=== PATIENT | male | born 1945 | race Caucasian/White ===

== ENCOUNTER → 2017-06-10 | Outpatient (CLI) | payer OTHER ==
[~2017-06-10] MED LIST: ASPI-757 PO; BICA50TA36 PO; CALC-515 PO; CALC-597 PO; FAMO20TA28 PO; HYDR474S3 PO; IBUP800T37 PO; LEVO-85 PO; LISI20TA29 PO; METO25TA23 PO; METO25TA93 PO; SPIR25TA78 PO; ZINC50TA2 PO
--- NOTE | 2017-06-10 15:07 | RADIOLOGY IMAGING REPORT ---
FACILITY: [facility] PATIENT NAME: Mason Shaver : 1945 MR: [id number] V: [id number] EXAM DATE: ORDERING PHYSICIAN: DILIP BECERRA TECHNOLOGIST: [place] [facility] [place] Sh[place] : 1945 Visit/Account:[id number] Date of Sevice: 06/10/2017 EXAMINATION: Nuclear Medicine Whole Body Bone Scan Additional Pertinent history: Prostate cancer. TECHNIQUE: 26.3 mCi technetium 99m MDP was injected intravenously. Delayed anterior and posterior wh ole body gamma camera images were obtained. Additional gamma camera images: none COMPARISON STUDIES: 02/28/2016 FINDINGS: There is no scintigraphic evidence of osseous metastatic disease. Extensive degenerative uptake is s een with a similar distribution to the prior study. Extensive uptake involves the cervical spine loc alized to the posterior elements, likely related to the facet joints. There is right greater than le ft degenerative uptake at the acromioclavicular joints and the glenohumeral joints. Uptake is seen a t the bilateral thumbs, likely at the first carpal metacarpal joints. Extensive degenerative uptake at the knees greater on the right than on the left. There is degenerative uptake at the left midfoot and at the left first metatarsophalangeal joint. IMPRESSION: 1. No scintigraphic evidence of osseous metastatic disease. 2. Multifocal degenerative uptake with a similar distribution to the previous study. Report Dictated By: Ambrosio Blair at 06/10/2017 2:57 PM Report E-Signed By: Ambrosio Blair at 06/10/2017 3:01 PM WSN:[email or web address]
== END ==
LOC: NUC 00:43
PROVIDERS: ATTEND Internal Medicine
DX: R97.21 Rising PSA following treatment for malignant neoplasm of prostate (principal)
CPT/HCPCS: 78306; A9503

== ENCOUNTER → 2017-07-03 | Outpatient (CLI) | payer OTHER ==
[2017-07-03 13:47] LABS: PLATELET COUNT, AUTOMATED 130 K/uL (150-450)
== END ==
LOC: LAB 13:32
PROVIDERS: ATTEND Urology
DX: C61 Malignant neoplasm of prostate (principal)
CPT/HCPCS: 36415; 82040; 82247; 82310; 82374; 82435; 82565; 82947; 84075; 84132; 84153; 84155; 84295; 84403; 84450; 84460; 84520; 85025

== ENCOUNTER 2017-10-08 10:49 | Outpatient (RCR) | payer OTHER ==
[~2017-10-08 10:49] MED LIST changes: -BICA50TA36 PO; +BICA50TA41 PO; -SPIR25TA78 PO; +SPIR25TA80 PO
== END 2017-10-09 13:44 | disposition home or self-care (01) ==
LOC: RAON 10:49
PROVIDERS: ATTEND Radiology Radiation Oncology
DX: C61 Malignant neoplasm of prostate (principal)
CPT/HCPCS: 99212

== ENCOUNTER 2017-12-25 11:48 | Emergency (ER) | payer OTHER ==
[~2017-12-25 11:48] MED LIST changes: +DOXY-228 PO; +TAMS0.4C25 PO
--- NOTE | 2017-12-25 11:55 | ER Report ---
History and Physical Time Seen By MD: 11:55 HPI/ROS CHIEF COMPLAINT: Systemic joint pain HISTORY OF PRESENT ILLNESS: This is a 72-year-old male presents to the emergency department for systemic joint pain. Patient was seen and evaluated in the emergency department approximately one month ago given doxycycline for Meredith spotted fever. Patient states he did improve during the course of antibiotics and for roughly a week after that began to develop systemic joint pain given. States now that he has take 2 ibuprofen in the morning just to get up and start moving, significant amount of pain in the hips and shoulders, as well as the hands and knees. No history of rheumatoid arthritis. Patient does have a history of prostate cancer as well as colon cancer. He denies fevers or chills. No rashes. No headaches. REVIEW OF SYSTEMS: Respiratory: No cough, no dyspnea. Cardiovascular: No chest pain, no palpitations. Gastrointestinal: No vomiting, no abdominal pain. Musculoskeletal: As above. Allergies: Coded Allergies: Sulfa (Sulfonamide Antibiotics) (Verified Allergy, Severe, swelling to hands and face, 12/25/17) Home Meds Active Scripts Prednisone (PREDNISONE) 20 Mg Tablet, 40 MG PO QDAY, #17 TAB 40mg once a day for 4 days. 30mg once a day for 3 days. 20mg once a day for 3 days. 10mg once a day for 2 days. Prov:DIONISIO DE LA TORRE [employer]/DESIGNER-BC 12/25/17 Reported Medications Tamsulosin Hcl (FLOMAX) 0.4 Mg Cap.er.24h, 0.4 MG PO QDAY, CAP 12/01/17 Lisinopril (LISINOPRIL) 20 Mg Tablet, 20 MG PO QDAY, TAB 12/01/17 Calcium Carbonate (TUMS) 200 Mg Tab.chew, 200 MG PO PRN, TAB.CHEW 04/25/16 Zinc Amino Acid Chelate (ZINC) 50 Mg Tablet, 50 MG PO PRN 04/25/16 Spironolactone (SPIRONOLACTONE) 25 Mg Tablet, 12.5 MG PO DAILY, TAB 04/25/16 Metoprolol Tartrate (METOPROLOL TARTRATE) 25 Mg Tablet, 1 TAB PO BID, TAB 04/25/16 Ibuprofen (IBUPROFEN) 800 Mg Tablet, 1 TAB PO Q8H PRN for PAIN, #50 TAB 02/02/16 Discontinued Reported Medications Aspirin (ASPIRIN) 325 Mg Tablet, 325 MG PO PRN PRN for PAIN/HEADACHE, TAB 04/25/16 Calcium Carbonate/Vitamin D3 (CALCIUM 600 + VIT D TABLET) 1 Each Tablet, 1 EACH PO QODAY 04/25/16 Discontinued Scripts Doxycycline Hyclate (DOXYCYCLINE HYCLATE) 100 Mg Tablet.dr, 100 MG PO BID for 10 Days, #20 TAB 0 Refills Prov:DIONISIO DE LA TORRE [employer]/DESIGNER-BC 12/01/17 Past Medical/Surgical History The patient has a past medical and surgical history of hypertension, asthma, pneumonia, colon cancer, GERD, prostate cancer, 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 Reviewed Nurses Notes: Yes Hx Smoking: Yes (SMOKED 15 YEARS, 1/2 PPD) Smoking Status: Former Smoker Exposure to Second Hand Smoke?: No Hx Substance Use Disorder: No Hx Alcohol Use: Yes Constitutional Vital Sign - Last 24 Hours 12/25/17 11:58 Temp 98.1 Pulse 97 Resp 16 B/P (MAP) 147/95 Pulse Ox 95 O2 Delivery Room Air Physical Exam General Appearance: The patient is alert, has no immediate need for airway protection and no current signs of toxicity. Eyes: Pupils equal and round no injection. Respiratory: Chest is non tender, lungs are clear to auscultation. Cardiac: regular rate and rhythm. Gastrointestinal: Abdomen is soft and non tender, no masses, bowel sounds normal. Musculoskeletal: Neck: Neck is supple and non tender. Extremities have full range of motion and are non tender. Skin: No rashes or lesions. DIFFERENTIAL DIAGNOSIS: After history and physical exam differential diagnosis was considered for rheumatoid arthritis, Lyme disease, Ector mountain spotted fever and metastatic cancer. Medical Decision Making Data Points Laboratory Hematology Test 12/25/17 12:58 Erythrocyte Sedimentation Rate 34 mm/HOUR (0-20) C-Reactive Protein 6.1 mg/dl (<1.0) Chemistry Test 12/25/17 12:58 Erythrocyte Sedimentation Rate 34 mm/HOUR (0-20) C-Reactive Protein 6.1 mg/dl (<1.0) EKG/Imaging Imaging INDICATION: Bilateral hip pain after insect bite COMPARISON: None available FINDINGS: No evidence of fracture, dislocation, or acute osseous abnormality of the bones of the pelvis. 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 Prostatic seeds are noted. Moderate to severe degenerative changes seen within the visualized lumbar spine. IMPRESSION: 1. No acute osseous abnormality of the pelvis 2. 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 COMPARISON: Chest radiograph 04/27/2016. FINDINGS: Right shoulder: The bones of the right shoulder demonstrate normal alignment, without evidence of fracture or dislocation. There are moderately advanced degenerative changes at the glenohumeral and acromioclavicular joints. Pr ominent osteophyte formation at the acromioclavicular joint, with inferior spurring. The subacromial space is preserved. Generalized osteopenia. Visualized upper right ribs appear intact. Left shoulder: Bones of the left shoulder demonstrate normal alignment, without evidence of fracture or dislocation. There are moderately advanced degenerative changes at the glenohumeral and acromioclavicular joints. Moderate osteophyte formation at the acromioclavicular joint, with mild inferior spurring. The canales bacromial space is preserved. Visualized upper left ribs appear intact. IMPRESSION: 1. No acute osseous findings involving either shoulder. Normal alignment. 2. Moderately advanced degenerative changes of both glenohumeral and acromioclavicular joints. Report Dictated By: Demarco Pinon MD at 12/25/2017 2:26 PM Report E-Signed By: Demarco Pinon MD at 12/25/2017 2:29 PM WSN:[facility] ED Course/Re-evaluation ED Course Patient was admitted to room. History was were obtained. Differential diagnoses were considered. The patient has had recurrent joint pain, which is more painful than one month ago when he was seen for a tick bite. He did state that pain improved after the doxycycline, but the systemic joint pain began to return, only more intense. I am concerned that he does have some other inflammatory condition developing, such as RA. I did sent blood looking for rheumatoid factor as well as Lyme. ESR today is 34, CRP 6.1. A hip and bilateral shoulder X-ray is showing arthritis. I did review the labs and radiology results with the patient. I did express my concern about RA. I did place him on a 10 day tapered coarse of prednisone. [facility] He was instructed to return to the ED for any other concerns. Patient expressed understanding and was discharged home. Decision to Disposition Date: Dec 25, 2017 Decision to Disposition Time: 14:40 Depart Departure Latest Vital Signs Vital Signs Date Time Temp Pulse Resp B/P (MAP) Pulse Ox O2 Delivery O2 Flow Rate FiO2 12/25/17 11:58 98.1 97 16 147/95 95 Room Air Impression: Primary Impression: Multiple joint pain Additional Impression: Fatigue Condition: Improved Disposition: HOME OR SELF-CARE Referrals: HAVEN HUDSON [facility] (PCP) New Scripts Prednisone (PREDNISONE) 20 Mg Tablet 40 MG PO QDAY, #17 TAB 40mg once a day for 4 days. 30mg once a day for 3 days. 20mg once a day for 3 days. 10mg once a day for 2 days. Prov: DIONISIO DE LA TORRE 12/25/17 Patient Instructions: Arthritis (GEN), Rheumatoid Arthritis (ED) Additional Instructions: I did sent the prescription for the tapered prednisone course to the [place] pharmacy, you may want to call and confirm that they will overnight the medications to you. If in the mean time you need to take something else for the pain, you can take 600-800mg of Ibuprofen every 6-8 hours OR Tylenol 500-1000mg every 8 hours, I would not recommend taking these high doses for more than one week, do not take the Ibuprofen with the steroid. Call [facility] next week and have the information from [facility] follow [facility] appointment on the . Drink plenty of water. Get plenty of rest. Return to the ED for any other concerns or worsening symptoms. Problem Qualifiers Additional Impression: Fatigue Fatigue type: unspecified Qualified Codes: R53.83 - Other fatigue DIONISIO DE LA TORRE-MEHNAZ Dec 25, 2017 11:55
[2017-12-25 11:58] VITALS: BP 147/95
--- NOTE | 2017-12-25 13:47 | RADIOLOGY IMAGING REPORT ---
FACILITY: [facility] [place] PATIENT NAME: Mason Shaver : 1945 MR: [id number] V: [id number] EXAM DATE: ORDERING PHYSICIAN: DIONISIO DE LA TORRE TECHNOLOGIST: Location: [facility] Patient: Mason Shaver : 1945 Visit/Account:[id number] Date of Sevice: 12/25/2017 PELVIS INDICATION: Bilateral hip pain after insect bite COMPARISON: None available FINDINGS: No evidence of fracture, dislocation, or acute osseous abnormality of the bones of the pelvis. 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 Prostatic seeds are noted. Moderate to severe degenerative changes seen within the visualized lumbar spine. IMPRESSION: 1. No acute osseous abnormality of the pelvis 2. 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
--- NOTE | 2017-12-25 14:34 | RADIOLOGY IMAGING REPORT ---
FACILITY: [facility] PATIENT NAME: Mason Shaver : 1945 MR: [id number] V: [id number] EXAM DATE: ORDERING PHYSICIAN: DIONISIO DE LA TORRE TECHNOLOGIST: Location: [facility] Patient: Mason Shaver : 1945 Visit/Account:[id number] Date of Sevice: 12/25/2017 EXAMINATION: 2 views of both shoulders HISTORY: Bilateral shoulder pain. COMPARISON: Chest radiograph 04/27/2016. FINDINGS: Right shoulder: The bones of the right shoulder demonstrate normal alignment, without evidence of fra cture or dislocation. There are moderately advanced degenerative changes at the glenohumeral and acr omioclavicular joints. Prominent osteophyte formation at the acromioclavicular joint, with inferior spurring. The subacromial space is preserved. Generalized osteopenia. Visualized upper right ribs appear intact. Left shoulder: Bones of the left shoulder demonstrate normal alignment, without evidence of fracture or dislocation. There are moderately advanced degenerative changes at the glenohumeral and acromiocl avicular joints. Moderate osteophyte formation at the acromioclavicular joint, with mild inferior sp urring. The subacromial space is preserved. Visualized upper left ribs appear intact. IMPRESSION: 1. No acute osseous findings involving either shoulder. Normal alignment. 2. Moderately advanced degenerative changes of both glenohumeral and acromioclavicular joints. Report Dictated By: Demarco Pinon MD at 12/25/2017 2:26 PM Report E-Signed By: Demarco Pinon MD at 12/25/2017 2:29 PM WSN:[email or web address]
[2017-12-25] MEDS ORDERED: PRED20TA6 PO (14:43)
== END 2017-12-25 14:53 | disposition home or self-care (01) ==
LOC: ER 11:59
DX: M25.512 Pain in left shoulder (principal); M25.511 Pain in right shoulder; M25.552 Pain in left hip; M25.551 Pain in right hip; M25.542 Pain in joints of left hand; M25.541 Pain in joints of right hand; M25.562 Pain in left knee; M25.561 Pain in right knee; M16.0 Bilateral primary osteoarthritis of hip; R53.83 Other fatigue
CPT/HCPCS: 36415; 72170; 85651; 86140; 86430; 86618; 99284

== ENCOUNTER → 2018-01-22 | Outpatient (CLI) | payer OTHER ==
[~2018-01-22] MED LIST changes: +PRED20TA6 PO
== END ==
LOC: LAB 12:06
PROVIDERS: ATTEND Urology
DX: R97.20 Elevated prostate specific antigen [PSA] (principal)
CPT/HCPCS: 36415; 84153